=== PATIENT | female | born 1975 | race African-American/Black ===

== ENCOUNTER 2020-07-22 13:52 | Emergency (ER) | payer MEDICAID ==
[~2020-07-22] VITALS: Ht 144.8 cm; Wt 51.3 kg
[2020-07-22 14:04] VITALS: BP 115/82
[2020-07-22] MEDS ORDERED: FAMOTIDINE 20 MG/2 ML VIAL IVP ONE (14:30)
[2020-07-22] MEDS ORDERED: EPINEPHrine 1 MG/ML VIAL SQ ONE (14:30)
[2020-07-22] MEDS ORDERED: DEXAMETHASONE SOD PHOS 4 MG/ML VIAL IVP ONE (14:30)
[2020-07-22] MEDS ORDERED: diphenhydrAMINE 50 MG/ML VIAL IVP ONE (14:30)
[2020-07-22] MEDS ORDERED: ALBUTEROL SULFATE 2.5 MG/3 ML NEBU. NEB ONE (14:30)
[2020-07-22] MEDS ORDERED: FAMO-63 PO (16:02)
[2020-07-22] MEDS ORDERED: PRED-220 PO (16:02)
--- NOTE | 2020-07-22 16:03 | ED.ADGEN ---
Past Medical History Past Medical History: No Pertinent History Past Surgical History: Hysterectomy, Other Additional Past Surgical Histo: D&C Smoking Status: Current Every Day Smoker Alcohol Use: None Drug Use: None General Adult EDM: Chief Complaint: ALLERGIC REACTION HPI: HPI: Patient is a 44-year-old female who presents to the emergency room complaining of an allergic reaction to her face. She states that on Thursday she used a new make-up and her face swelled up. She went to urgent care and they gave her a shot of steroids and she has been taking Benadryl at home. She states that initially the swelling got better but then it came back worse. She denies any shortness of breath, rash, nausea, vomiting, wheezing. She states the swelling is so significant is hard for her to open her eyes. Review of Systems: Review of Systems: General: Denies fever, chills, sweats, fatigue Eyes: Denies drainage, blurred vision, eye redness HENT: Denies rhinorrhea, sore throat, earache Respiratory: Denies cough, shortness of breath, wheezing Cardiac: Denies edema, palpitations, chest pain GI: Denies abdominal pain, Nausea, vomiting MSK: Denies back pain, neck pain Skin: Denies rash, jaundice Neuro: Denies headache, dizziness Psychiatric: Denies SI/HI Current Medications: Current Medications Medications (Trade) Dose Ordered Sig/Deisy Start Time Stop Time Status Last Admin Dose Admin Albuterol Sulfate (Ventolin Neb Soln) 2.5 mg 1X ONCE 07/22/20 14:30 07/22/20 14:01 DC Dexamethasone Sodium Phosphate (Decadron) 10 mg 1X ONCE 07/22/20 14:30 07/22/20 14:31 DC 07/22/20 14:32 10 MG Diphenhydramine HCl (Benadryl) 25 mg 1X ONCE 07/22/20 14:30 07/22/20 14:01 DC Epinephrine HCl (Adrenalin) 0.3 mg 1X ONCE 07/22/20 14:30 07/22/20 14:31 DC 07/22/20 14:33 0.3 MG Famotidine (Pepcid Vial) 20 mg 1X ONCE 07/22/20 14:30 07/22/20 14:31 DC 07/22/20 14:31 20 MG Allergies: Allergies: Allergies Coded Allergies Type Severity Reaction Last Updated Verified No Known Drug Allergies 06/13/14 No Physical Exam: PE: General: Awake, alert, NAD. Well Nourished, well hydrated. Cooperative HEENT: Atraumatic, EOMI, PERRL, airway patent, moist oral mucosa Neck: Supple, trachea midline Respiratory: CTA bilaterally, normal effort, no wheezing/crackles CV: RRR, no murmur, cap refill <2 GI: Soft, nondistended, nontender, no masses MSK: No obvious deformities Skin: Warm, dry, intact, significant swelling to bilateral cheeks, nose, bilateral upper and lower eyelids Neuro: A&O x3, speech NL, sensory and motor grossly intact, no focal deficits Psych: Normal affect, normal mood, not suicidal or homicidal Current Patient Data: Vital Signs: Vital Signs Date Time Temp Pulse Resp B/P (MAP) Pulse Ox O2 Delivery O2 Flow Rate FiO2 07/22/20 14:04 97.8 100 16 115/82 (93) 99 Room Air 97.8 EKG: EKG: [] Heart Score: Risk Factors: Risk Factors: DM, Current or recent (<one month) smoker, HTN, HLP, family history of CAD, obesity. Risk Scores: Score 0 - 3: 2.5% MACE over next 6 weeks - Discharge Home Score 4 - 6: 20.3% MACE over next 6 weeks - Admit for Clinical Observation Score 7 - 10: 72.7% MACE over next 6 weeks - Early Invasive Strategies Radiology/Procedures: Radiology/Procedures: [] Course & Med Decision Making: Course & Med Decision Making Pertinent Labs and Imaging studies reviewed. (See chart for details) Patient is a 44-year-old female who presents to the emergency room allergic reaction. This has been stable over several days. She was given medications here in the emergency room. She was observed for a couple of hours and not have any further worsening of her swelling. Swelling has improved and patient is able to open her eyes. She will be placed on a steroid taper and I have encouraged her to continue her Benadryl. We will also place her on Pepcid. Patient's test results and vitals while in the ED were fully reviewed and discussed with the patient. Patient is stable and at this time does not need admission to the hospital. We have discussed strict return precautions and the importance of following up with their Primary Care Physician. Patient stated understanding and was given an opportunity to ask any questions. Patient is in agreement with plan. Dragon Disclaimer: Dragon Disclaimer: This electronic medical record was generated, in whole or in part, using a voice recognition dictation system. Departure Departure Impression: Primary Impression: Allergic reaction Disposition: 01 DC HOME SELF CARE/HOMELESS Condition: IMPROVED Referrals: UNKNOWN PCP NAME (PCP) Patient Instructions: Anaphylactic Reaction Scripts Famotidine (PEPCID) 20 Mg Tablet 20 MG PO BID for 5 Days, #10 TAB Prov: FRANK SCRUGGS MD 07/22/20 Prednisone (PREDNISONE ) 10 Mg Tablet 10 MG PO UD, #30 TAB 0 Refills Take 5 tablets by mouth daily for 2 days, then take 4 tablets by mouth daily for 2 days, then take 3 tablets by mouth daily for 2 days, then take 2 tablets by mouth daily for 2 days, then take 1 tablets by mouth daily for 2 days, then stop. Prov: FRANK SCRUGGS MD 07/22/20 FRANK SCRUGGS MD Jul 22, 2020 16:03
== END 2020-07-22 16:47 | disposition home or self-care (01) ==
LOC: ER 13:52
DX: R60.0 Localized edema (principal); T45.0X5A Adverse effect of antiallergic and antiemetic drugs, initial encounter; F17.200 Nicotine dependence, unspecified, uncomplicated; Z90.710 Acquired absence of both cervix and uterus; Z98.890 Other specified postprocedural states; Y92.89 Other specified places as the place of occurrence of the external cause
CPT/HCPCS: 96372; 96374; 96375; 99284; J0171; J1100; J3490

== ENCOUNTER 2020-08-09 13:49 | Emergency (ER) | payer MEDICAID ==
[~2020-08-09] VITALS: Ht 144.8 cm; Wt 51.3 kg
[~2020-08-09 13:49] MED LIST: FAMO-63 PO; PRED-220 PO
[2020-08-09] MEDS ORDERED: CETI1TAB7 PO (15:11)
[2020-08-09] MEDS ORDERED: PRED-220 PO (15:11)
--- NOTE | 2020-08-09 15:16 | ED.ADGEN ---
Past Medical History Past Medical History: No Pertinent History Past Surgical History: No Surgical History Additional Past Surgical Histo: D&C Smoking Status: Current Every Day Smoker Alcohol Use: None Drug Use: None General Adult EDM: Chief Complaint: ALLERGIC REACTION HPI: HPI: Patient is a 45-year-old female presents to the emergency room complaining of a rash and swelling to her face. She was evaluated here for the same complaints recently and at that time was diagnosed with contact dermatitis. She did finish the entire steroid pack that she was given as well as the other medications, however she did not eliminate the new face while she was using and after she finished the medications the symptoms returned. She has not seen her primary care doctor. She does not have a history of allergies. She denies any shortness of breath or chest pain. Review of Systems: Review of Systems: Complete ROS is negative unless otherwise documented in HPI Allergies: Allergies: Allergies Coded Allergies Type Severity Reaction Last Updated Verified No Known Drug Allergies 06/13/14 No Physical Exam: PE: General: Awake, alert, NAD. Well Nourished, well hydrated. Cooperative HEENT: Atraumatic, EOMI, PERRL, airway patent, moist oral mucosa, swelling to bilateral upper and lower eyelids with mild swelling of bilateral cheeks, no swelling of the tongue, oropharynx, uvula Neck: Supple, trachea midline Respiratory: CTA bilaterally, normal effort, no wheezing/crackles CV: RRR, no murmur, cap refill <2 GI: Soft, nondistended, nontender, no masses MSK: No obvious deformities Skin: Warm, dry, intact Neuro: A&O x3, speech NL, sensory and motor grossly intact, no focal deficits Psych: Normal affect, normal mood, not suicidal or homicidal Current Patient Data: Vital Signs: Vital Signs Date Time Temp Pulse Resp B/P (MAP) Pulse Ox O2 Delivery O2 Flow Rate FiO2 08/09/20 14:30 98.1 84 18 105/71 (82) 100 Room Air 98.1 EKG: EKG: [] Heart Score: Risk Factors: Risk Factors: DM, Current or recent (<one month) smoker, HTN, HLP, family history of CAD, obesity. Risk Scores: Score 0 - 3: 2.5% MACE over next 6 weeks - Discharge Home Score 4 - 6: 20.3% MACE over next 6 weeks - Admit for Clinical Observation Score 7 - 10: 72.7% MACE over next 6 weeks - Early Invasive Strategies Radiology/Procedures: Radiology/Procedures: [] Course & Med Decision Making: Course & Med Decision Making Pertinent Labs and Imaging studies reviewed. (See chart for details) Patient is a 45-year-old female who presents to the Emergency Room complaining of rash and swelling of the face. Patient's presentation is concerning for an allergic reaction. At this time, patient does not or signs of shock that will require epinephrine. Patient will be treated with outpatient medications as she is improved from the last time I saw her. I have recommended that she follow- up with her primary care doctor to be evaluated for what she is reacting to. Patient's test results and vitals while in the ED were fully reviewed and discussed with the patient. Patient is stable and at this time does not need admission to the hospital. We have discussed strict return precautions and the importance of following up with their Primary Care Physician. Patient stated understanding and was given an opportunity to ask any questions. Patient is in agreement with plan. Eloina Disclaimer: Eloina Disclaimer: This electronic medical record was generated, in whole or in part, using a voice recognition dictation system. Departure Departure Impression: Primary Impression: Allergic reaction Disposition: 01 DC HOME SELF CARE/HOMELESS Condition: STABLE Referrals: CLARA CRUZ (PCP) Patient Instructions: Contact Dermatitis Scripts Cetirizine Hcl/Pseudoephedrine (ZYRTEC-D TABLET) 1 Each Tab.er.12h 1 TAB PO BID, #30 TAB Prov: FRANK SCRUGGS MD 08/09/20 Prednisone (PREDNISONE ) 10 Mg Tablet 10 MG PO UD for PREDNISONE TAPER, #39 TAB 0 Refills Take 3 tablets by mouth twice a day for 3 days, then take 2 tablets by mouth twice a day for 3 days, then take 1 tablet by mouth twice a day for 3 days, then take 1 tablet by mouth daily x 3 days, then stop. Prov: FRANK SCRUGGS MD 08/09/20 FRANK SCRUGGS MD Aug 09, 2020 15:16
[2020-08-09 15:48] VITALS: BP 106/75
== END 2020-08-09 15:40 | disposition home or self-care (01) ==
LOC: ER 13:49
DX: L23.5 Allergic contact dermatitis due to other chemical products (principal); R21 Rash and other nonspecific skin eruption; R60.0 Localized edema; F17.200 Nicotine dependence, unspecified, uncomplicated; Z98.890 Other specified postprocedural states
CPT/HCPCS: 99282

== ENCOUNTER 2021-01-15 20:50 | Emergency (ER) | payer MEDICAID ==
[~2021-01-15] VITALS: Ht 144.8 cm; Wt 54.5 kg
[~2021-01-15 20:50] MED LIST changes: +CETI1TAB7 PO
[2021-01-15 22:35] VITALS: BP 136/90
--- NOTE | 2021-01-16 00:08 | RAD ---
3 view left hand HISTORY: Hyperextended left thumb yesterday has progressive pain and swelling AP lateral oblique views The visualized osseous structures appear normal. IMPRESSION: No acute findings. Electronically signed by: Houston Bar III, MD (01/16/2021 12:05 AM) [facility]
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
[2021-01-16] MEDS ORDERED: ACETAMINOPHEN 500 MG TABLET PO ONE (00:15)
[2021-01-16] MEDS ORDERED: IBUPROFEN 400 MG TABLET. PO ONE (00:15)
== END 2021-01-16 00:41 | disposition home or self-care (01) ==
LOC: ER 20:50
DX: M79.645 Pain in left finger(s) (principal); F17.200 Nicotine dependence, unspecified, uncomplicated; X50.9XXA Other and unspecified overexertion or strenuous movements or postures, initial encounter; Y93.89 Activity, other specified; Y92.89 Other specified places as the place of occurrence of the external cause; Y99.8 Other external cause status
CPT/HCPCS: 29125; 73130; 99283